=== PATIENT | female | born 1965 | race Caucasian/White ===

== ENCOUNTER 2019-03-22 09:06 | Outpatient (CLI) | payer BC ==
--- NOTE | 2019-03-22 10:46 | MMO ---
Left Breast MAMMO Unilat Diag DDI LT+OLEKSANDR. CLINICAL HISTORY: Patient is 53 years old and is seen for diagnostic exam. The patient has the following family history of breast cancer: maternal aunt, malignant (generic). The patient has no personal history of cancer. The patient has a history of left needle biopsy - benign. VIEWS: The views performed were: left craniocaudal spot compression magnification; left craniocaudal spot compression with tomosynthesis; left mediolateral oblique spot compression with tomosynthesis; left mediolateral spot compression magnification; and left mediolateral with tomosynthesis. FILMS COMPARED: The present examination has been compared to a prior imaging study performed at [facility] on 03/02/2019. This study has been interpreted with the assistance of computer-aided detection. MAMMOGRAM FINDINGS: There are scattered fibroglandular densities. Additional views were performed. The report of the outside mammogram 03-02-[address] [facility] by Dr. Angel, states that there were no prior mammograms. However, the patient tells us that she had be dictated and evaluated once those [facility] mammograms become available for comparison. IMPRESSION: FINDING IN THE LEFT BREAST REQUIRES ADDITIONAL EVALUATION. OLD FILMS ARE REQUIRED FOR COMPARISON. A SUPPLEMENTAL REPORT WILL BE GENERATED WHEN THESE ARE OBTAINED. IF THESE ARE NOT RECEIVED, ADDITIONAL VIEWS AND/OR ULTRASOUND IS RECOMMENDED. THE RESULTS OF THIS EXAM WERE SENT TO THE PATIENT. ACR BI-RADS Category 0 - Incomplete: Need Prior Mammograms for Comparison MAMMOGRAPHY NOTE: 1. A negative mammogram report should not delay a biopsy if a dominant of clinically suspicious mass is present. 2. Approximately 10% to 15% of breast cancers are not detected by mammography. 3. Adenosis and dense breasts may obscure an underlying neoplasm. Reported by: NATALY VILLA MD Electonically Signed: [id number]
== END 2019-03-22 09:07 | disposition home or self-care (01) ==
LOC: BICMAMMO 09:06
PROVIDERS: ATTEND Obstetrics & Gynecology
DX: N63.20 Unspecified lump in the left breast, unspecified quadrant (principal)
CPT/HCPCS: G0279

== ENCOUNTER 2019-04-02 16:29 | Inpatient (IN) | payer BC ==
[2019-04-02 18:03] LABS: #Basophils 0.1 thou/uL (0.0-0.2); #Eosinphils 0.4 thou/uL (0.0-0.7); #Lymphocytes 2.2 thou/uL (1.20-3.40); #Monocytes 0.8 thou/uL (0.11-0.59); #Neutrophils 11.5 thou/uL (1.40-6.50); %Basophils 0.7 % (0.0-1.0); %Eosinophils 2.4 % (0.0-10.0); %Monocytes 5.1 % (0.0-10.0); %Neutrophils 76.9 % (42.0-75.0); Hemoglobin 12.4 g/dL (12.0-16.0); Mean Corpuscular HGB CONC 33.9 g/dL (32.0-36.0); Mean Corpuscular Hemoglobin 30.7 pg (27.0-31.0); Mean Corpuscular Volume 90.5 fL (78.0-98.0); Mean Platelet Volume 6.4 fL (7.4-10.4); Platelet Count 320 thou/uL (130-400); RBC Distribution Width 11.6 % (11.5-14.5); Red Blood Cell (RBC) Count 4.03 mill/uL (4.20-5.40); White Blood Cell (WBC) Count 14.9 thou/uL (4.8-10.8)
[2019-04-02] MEDS ORDERED: Morphine 4 MG/ML VIAL ONE ×2 (18:15→21:22)
[2019-04-02] MEDS ORDERED: Ondansetron PF 4 MG/2 ML Vial ONE (18:15)
[2019-04-02 18:26] LABS: ALT (SGPT) 14 U/L (8-55); AST (SGOT) 10 U/L (5-34); Albumin 4.5 g/dL (3.5-5.0); Alkaline Phosphatase 64 U/L (40-110); Anion Gap 15 mmol/L (10-20); BUN (Urea Nitrogen) 10 mg/dL (9.8-20.1); Bilirubin, Total 0.6 mg/dL (0.2-1.2); Calc. Creatinine Clearance 0 mL/min (70-130); Calcium 9.7 mg/dL (7.8-10.44); Carbon Dioxide 26 mmol/L (22-29); Chloride 101 mmol/L (98-107); Estimated GFR-MDRD 72; Globulin 3.2 g/dL (2.4-3.5); Glucose 104 mg/dL (70-105); Potassium 3.8 mmol/L (3.5-5.1); Protein, Total 7.7 g/dL (6.0-8.3); Sodium 138 mmol/L (136-145)
--- NOTE | 2019-04-02 19:34 | CT ---
CT PELVIS WITH IV CONTRAST: History: Fever at home with possible abscess to left lower extremity. Patient has history of left kne e surgery and history of appendectomy. FINDINGS: There is inflammatory stranding seen in the subcutaneous adipose layer in the most medial aspect left gluteal region which is adjacent to the region of left gluteal cleft. There is an area of soft tissu e density present in this region which is asymmetric to the contralateral right side and measures shannon roximately 3.4 cm x 1.8 cm. This may represent a phlegmon. There is no fluid collection seen to sugge st an abscess at this time. Urinary bladder is partially distended and has a normal appearance. There is evidence of hysterectomy . No free fluid or fluid collection is seen in the pelvis. The osseous structures have a normal appearance. There is sacralization of the left aspect of the L5 vertebral body with S1 with fusion of the lateral masses in this region. IMPRESSION: 1. Inflammatory changes and stranding with probable small phlegmon seen in the most medial aspect lef t gluteal soft tissues which is below the level of the anus and adjacent to the gluteal cleft. There is no fluid collection seen to suggest an abscess at this time. POS: BRENDA
[2019-04-02] MEDS ORDERED: Clindamycin/D5W 900 mg/50 ml Premix Bag ONE (20:07)
[2019-04-02] MEDS ORDERED: Ondansetron ODT 4 MG TAB SL PRN (23:23)
[2019-04-02] MEDS ORDERED: Ondansetron PF 4 MG/2 ML Vial IVP PRN (23:23)
[2019-04-02] MEDS: Sodium Chloride 0.9% 1,000 ML IV SCH (23:54)
[2019-04-03 00:12] VITALS: BMI 30.2
[2019-04-03] MEDS ORDERED: cefTRIAXone\\ROCEPHIN 2 GM in Sodium Chloride 0.9% 100 ML IVPB SCH (01:00)
[2019-04-03] MEDS ORDERED: Ondansetron PF 4 MG/2 ML Vial IVP PRN (04:04)
[2019-04-03] MEDS ORDERED: Ibuprofen 200 MG TAB PO PRN (04:04)
[2019-04-03] MEDS ORDERED: Ondansetron ODT 4 MG TAB PO PRN (04:04)
[2019-04-03] MEDS ORDERED: Loratadine 10 MG TAB PO PRN (04:04)
[2019-04-03] MEDS ORDERED: Acetaminophen 325 MG TAB PO PRN (04:04)
--- NOTE | 2019-04-03 05:08 | HP ---
PRIMARY CARE PHYSICIAN: Dr. Green. CHIEF COMPLAINT: Pain on my buttocks and leg. HISTORY OF PRESENT ILLNESS: Ms. Vicente is a pleasant 53-year-old female, who has no significant past medical history. She says that about 3 days ago she noticed a small bump on her buttocks. She thought it might have been an ant bite, but it got larger and larger, then she started feeling sick and noticing high fever. She thought it could be a kidney stone, but she went to the urgent care to get it checked out and they prescribed an antibiotic for her. She started taking the antibiotics, but did not notice any improvement. She says it was a bluish green pill, thinks it may have been doxycycline. She also noticed that she started hurting "all over" and feeling like she had the flu. For this reason, she came into the ER and was found to have a cellulitis on her buttock region, and a CT scan was negative for abscess formation. But due to her fever and elevated white blood cell count and failed outpatient treatment, she is being admitted. The patient denies any nausea, no vomiting, no diarrhea, and no other complaints. REVIEW OF SYSTEMS: All systems were reviewed and are negative except that mentioned in the history of present illness. PAST MEDICAL HISTORY: Significant for anxiety. PAST SURGICAL HISTORY: She has had a hysterectomy, appendectomy, and knee surgery. ALLERGIES: TO PENICILLIN, WHICH CAUSES SWELLING OF HER THROAT AND TONGUE. SOCIAL HISTORY: She is , has 4 children. 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 She is a nonsmoker. 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 FAMILY HISTORY: Significant for breast cancer, bladder cancer sister also had breast cancer as well as an aunt. MEDICATIONS: Other than the antibiotic and hydrocodone, no other medications. PHYSICAL EXAMINATION: GENERAL: She is alert and oriented. She appears to be in no acute distress. She is well developed and well nourished. VITAL SIGNS: Blood pressure is 96/61, heart rate 81, respiratory rate of 18, temperature is 98.9. LABORATORY DATA: Her white blood cell count was 14.9, hemoglobin 12.4, hematocrit is 36.4, and platelet count is 320. chemistry is completely normal. CT scan did not demonstrate any evidence of abscess. ASSESSMENT: This is a 53-year-old female with failed outpatient treatment of cellulitis. She will be admitted and started on IV antibiotics. We will need to cover for the usual culprits such as staph and strep and given the location, also offer some gram-negative coverage as well. Follow her with serial exams and if she develops fluid collection or signs of abscess, then consult surgery for drainage. Otherwise, hopefully after a few days of IV antibiotics, she can be transitioned over to an oral regimen, and discharged home. Job ID: [id number]
[2019-04-03 05:49] LABS: #Eosinphils 0.4 thou/uL (0.0-0.7); #Lymphocytes 1.8 thou/uL (1.20-3.40); #Monocytes 0.7 thou/uL (0.11-0.59); #Neutrophils 8.4 thou/uL (1.40-6.50); %Basophils 0.4 % (0.0-1.0); %Eosinophils 3.8 % (0.0-10.0); %Lymphocytes 16.1 % (21.0-51.0); %Monocytes 6.2 % (0.0-10.0); %Neutrophils 73.6 % (42.0-75.0); Hemoglobin 10.5 g/dL (12.0-16.0); Mean Corpuscular HGB CONC 33.6 g/dL (32.0-36.0); Mean Corpuscular Hemoglobin 30.5 pg (27.0-31.0); Mean Corpuscular Volume 90.8 fL (78.0-98.0); Mean Platelet Volume 6.7 fL (7.4-10.4); Platelet Count 299 thou/uL (130-400); RBC Distribution Width 11.4 % (11.5-14.5); Red Blood Cell (RBC) Count 3.44 mill/uL (4.20-5.40); White Blood Cell (WBC) Count 11.3 thou/uL (4.8-10.8)
[2019-04-03 06:11] LABS: Anion Gap 9 mmol/L (10-20); BUN (Urea Nitrogen) 9 mg/dL (9.8-20.1); Calc. Creatinine Clearance 100 mL/min (70-130); Calcium 8.6 mg/dL (7.8-10.44); Carbon Dioxide 30 mmol/L (22-29); Chloride 103 mmol/L (98-107); Estimated GFR-MDRD 80; Glucose 107 mg/dL (70-105); Potassium 3.8 mmol/L (3.5-5.1); Sodium 138 mmol/L (136-145)
[2019-04-03] MEDS ORDERED: Clindamycin/D5W 900 MG in Premix Bag 1 BAG IVPB SCH (09:00)
[2019-04-03] MEDS ORDERED: Vancomycin HCl 1 GM in Premix Bag 1 BAG IVPB SCH (09:00)
[2019-04-03] MEDS: Vancomycin HCl 1.25 GM in Sodium Chloride 0.9% 250 ML 250 ML IVPB SCH ×2 (09:55→20:42)
[2019-04-03] MEDS: Saccharomyces boulardii 250 MG CAP PO SCH (09:56)
[2019-04-03] MEDS: Sodium Chloride 0.9% 1,000 ML IV SCH ×2 (10:00→14:49)
[2019-04-03] MEDS: Ibuprofen 200 MG TAB PO SCH ×2 (14:48→20:40)
[2019-04-03] MEDS ORDERED: Ketorolac Tromethamine 30 MG/ML VIAL IVP PRN (15:01)
[2019-04-03] MEDS ORDERED: Morphine 2 MG/ML SYRINGE SLOW IVP PRN (15:01)
[2019-04-03] MEDS ORDERED: Polyethylene Glycol 3350 17 GM Packet PO PRN (15:08)
[2019-04-03] MEDS: HYDROcodone/Acetaminophen 5/325 mg Tablet PO PRN (15:10)
[2019-04-03] MEDS: Famotidine 20 MG TAB PO SCH (20:39)
[2019-04-03] MEDS: Senokot S 8.6-50 MG TAB PO SCH (20:41)
[2019-04-04] MEDS: Sodium Chloride 0.9% 1,000 ML IV SCH ×2 (01:32→16:14)
[2019-04-04] MEDS: HYDROcodone/Acetaminophen 5/325 mg Tablet PO PRN ×2 (05:49→21:22)
[2019-04-04] MEDS: Ibuprofen 200 MG TAB PO SCH ×2 (09:05→16:03)
[2019-04-04] MEDS: Famotidine 20 MG TAB PO SCH ×2 (09:05→21:15)
[2019-04-04] MEDS: Saccharomyces boulardii 250 MG CAP PO SCH (09:05)
[2019-04-04] MEDS: Senokot S 8.6-50 MG TAB PO SCH ×2 (09:06→21:15)
[2019-04-04] MEDS: Vancomycin HCl 1.25 GM in Sodium Chloride 0.9% 250 ML 250 ML IVPB SCH ×3 (10:25→21:25)
[2019-04-04] MEDS ORDERED: Morphine 4 MG/ML VIAL SLOW IVP PRN (10:56)
--- NOTE | 2019-04-04 12:27 | CON ---
DATE OF CONSULTATION: CHIEF COMPLAINT: Perianal pain and fever. HISTORY OF PRESENT ILLNESS: The patient is a 53-year-old female, who has a 4-day history of perirectal pain, fevers at 103, last night had drainage of purulent fluid. PAST MEDICAL HISTORY: Significant for anxiety. PAST SURGICAL HISTORY: She has had a hysterectomy, appendectomy, knee surgery. ALLERGIES: SHE HAS ALLERGIES TO PENICILLIN. SOCIAL HISTORY: She is . 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 FAMILY HISTORY: Breast cancer, bladder cancer. MEDICATIONS: No medications. PHYSICAL EXAMINATION: VITAL SIGNS: Temperature is 98.3, pulse 70, blood pressure 112/72. GENERAL: She is awake, alert, in no apparent distress. She last ate at 11 p.m. HEENT: Unremarkable. LUNGS: Clear. HEART: Regular rate and rhythm. ABDOMEN: Soft, nondistended, nontender. : Perianal exam on the right gluteus about 4 cm from the anal verge somewhat posterolateral. There is a 4 cm indurated mass with some central fluctuance consistent with either gluteal or perirectal abscess. LABORATORY DATA: Her white count is 11.1, hemoglobin and hematocrit 10 and 31, platelet count 299. Electrolytes are fine. ASSESSMENT: Gluteal versus perirectal abscess. PLAN: Exam under anesthesia, I and D. we will plan for doing this tomorrow. I have discussed planned procedure as well as risk of bleeding, infection, possible fistula formation. She understands and gives informed consent. Job ID: [id number]
[2019-04-04] MEDS ORDERED: ALPRAZolam 0.25 MG TAB PO PRN (18:23)
--- NOTE | 2019-04-04 18:27 | PDOC.HOSPP ---
- Subjective Encounter Date: 04/04/19 Encounter Time: 10:00 Subjective: Patient seen and examined for gluteal abscess. No fever. Pain +. No other complaints. No overnight events - Objective Vital Signs & Weight: Vital Signs (12 hours) Temp Pulse Resp BP Pulse Ox 04/04/19 08:00 98.3 F 70 16 112/72 96 Weight Weight 165 lb I&O: 04/03/19 04/04/19 04/05/19 06:59 06:59 06:59 Intake Total 3153 480 Balance 3153 480 Result Diagrams: 04/03/19 05:11 04/03/19 05:11 Hospitalist ROS - Review of Systems Respiratory: denies: cough, dry, shortness of breath, hemoptysis, SOB with excertion, pleuritic pain, sputum, wheezing, other Cardiovascular: denies: chest pain, palpitations, orthopnea, paroxysmal noc. dyspnea, edema, light headedness, other - Medication Medications: Active Medications Generic Name Dose Route Start Last Admin Trade Name Freq PRN Reason Stop Dose Admin Hydrocodone Bitart/Acetaminophen 1 tab 04/03/19 04:04 04/04/19 05:49 [place] 5/325 PO 1 tab Q4H PRN Administration Moderate Pain (4-6) Famotidine 20 mg 04/03/19 21:00 04/04/19 09:05 Pepcid PO 20 mg BID ROB Administration Levofloxacin 500 mg/ Device 100 mls @ 100 mls/hr 04/03/19 05:00 04/04/19 04: 51 IVPB 100 mls 0500 ROB Administration Vancomycin HCl 1.25 gm/ Sodium 250 mls @ 166.667 mls/hr 04/03/19 09:00 10:57 Chloride IVPB 250 mls 0900,2100 ROB Administration Sodium Chloride 1,000 mls @ 75 mls/hr 04/03/19 13:15 04/04/19 16:14 Normal Saline 0.9% IV 1,000 mls .[id number] ROB Administration Ibuprofen 400 mg 04/03/19 04:04 04/03/19 05:57 Motrin PO 400 mg Q4H PRN Administration Fever > 101 Saccharomyces Boulardii 250 mg 04/03/19 09:00 04/04/19 09:05 Florastor PO 250 mg DAILY ROB Administration Senna/Docusate Sodium 1 tab 04/03/19 21:00 04/04/19 09:06 Senokot S PO Not Given BID ROB - Exam General Appearance: NAD Neck: supple, no JVD Heart: RRR, no gallops Respiratory: CTAB, no wheezes, no rales, no ronchi Gastrointestinal: soft, non-tender, normal bowel sounds Extremities: no edema Skin - other findings: erythema/induration left gluteal region per surgery Hosp A/P - Plan DVT proph w/SCDs Sepsis due to gluteal abscess with cellulitis (POA) Anxiety Obesity BMI 30.2 CKD 2 PLAN: Cont IV Vancomycin Cont IV Levaquin Monitor Vancomycin level Consult Gen surg Cont IVF NPO after MN Pain control
[2019-04-05] MEDS: Famotidine 20 MG TAB PO SCH (09:09)
[2019-04-05] MEDS: Senokot S 8.6-50 MG TAB PO SCH (09:09)
[2019-04-05] MEDS: Saccharomyces boulardii 250 MG CAP PO SCH (09:09)
[2019-04-05] MEDS ORDERED: Lidocaine 1% w/Epinephrine 1:100K 20 ML VIAL ONE (10:29)
[2019-04-05] MEDS ORDERED: Bupivacaine PF 0.5% 30 ML VIAL ONE (10:29)
[2019-04-05] MEDS ORDERED: Fentanyl 100 MCG/2 ML VIAL ONE (10:36)
[2019-04-05] MEDS ORDERED: Midazolam HCl 2 mg/2 ml Vial ONE (10:36)
[2019-04-05] MEDS: Vancomycin HCl 1.25 GM in Sodium Chloride 0.9% 250 ML 250 ML IVPB SCH (11:09)
[2019-04-05] MEDS ORDERED: HYDROcodone/Acetaminophen 10/325 mg Tablet PO PRN ×2 (11:21)
[2019-04-05] MEDS ORDERED: Promethazine HCl 25 MG/ML VIAL IM PRN (11:36)
[2019-04-05] MEDS ORDERED: Ondansetron HCl/PF 4 MG/2 ML Vial IVP PRN (11:36)
[2019-04-05] MEDS ORDERED: Promethazine HCl 25 MG/ML VIAL SLOW IVP PRN (11:36)
--- NOTE | 2019-04-05 11:46 | OP ---
DATE OF PROCEDURE: 04/05/2019 PREOPERATIVE DIAGNOSIS: Perirectal abscess. PROCEDURE PERFORMED: Incision and drainage. INDICATIONS: This is a 53-year-old female with a fluctuant mass on the left side of her anus, 4 cm from the anal verge. This had some drainage. FINDINGS: Rectal exam showed no communication internally. It contained multilocular purulent pockets, that did not have foul smell,consistent with Staph aureus, more consistent with gluteal abscess. DESCRIPTION OF PROCEDURE: After informed consent was obtained, the patient was taken to the operating room, given general endotracheal anesthesia, placed in the lithotomy position. The perianal region was prepped and draped in the usual fashion. Local anesthesia infiltrated with 0.5% Marcaine. A bivalved anal retractor was inserted. The rectal wall and anal canal were inspected. There was no evidence of inflammation internally. An elliptical incision was performed, releasing purulent fluid. This was sent for culture. The skin was excised. Loculations were broken up. The area was thoroughly irrigated with saline. Hemostasis achieved with electrocautery, packed the empty dry with wide mesh gauze. The patient tolerated the procedure well, transferred to Recovery in good condition. Job ID: [id number]
[2019-04-05] MEDS: Sodium Chloride 0.9% 1,000 ML IV SCH (12:12)
[2019-04-05 12:15] VITALS: BP 128/86; TEMP 97.5
[2019-04-05] MEDS ORDERED: Lidocaine 1% PF 5 ML VIAL ONE (14:15)
[2019-04-05] MEDS ORDERED: PROPOFOL 200 MG/20 ML VIAL ONE (14:15)
--- NOTE | 2019-04-05 16:05 | DIS ---
DATE OF ADMISSION: 04/02/2019 DATE OF DISCHARGE: 04/05/2019 DISCHARGE DISPOSITION: Home. FOLLOWUP: 1. Follow up with primary care physician, Dr. Vinny Green in 1 week. 2. Follow up with Dr. Arias in 2 weeks. ALLERGIES: THE PATIENT IS ALLERGIC TO PENICILLIN. DISCHARGE MEDICATIONS: 1. Bactrim double strength one tablet b.i.d. for 2 weeks. 2. Foster as needed for pain. 3. Tylenol. 4. Ibuprofen as needed. 5. Florastor 250 mg daily. INPATIENT EXPANDED DUTY DENTAL ASSISTANT: General Surgery, Dr. Arias. The patient was seen on the day of discharge. Denies any new complaints. BRIEF HOSPITAL COURSE: The patient is a 53-year-old female, who presented to the emergency room with gluteal abscess. She was evaluated by General Surgery, Dr. Arias. She underwent incision and drainage earlier today. She was placed on vancomycin and Levaquin. Cultures were consistent with MRSA sensitive to Bactrim. The patient has been cleared by General Surgery for discharge. FINAL DIAGNOSES: 1. Gluteal abscess with sepsis and cellulitis, present on admission. 2. Anxiety. 3. Chronic kidney disease stage 2. 4. Obesity with a BMI of 30.2. Job ID: [id number]
--- NOTE | 2019-04-06 05:17 | PQF ---
SAP It Infrastructure Architect Crystal Reports Winform ViewerSPOXANA MCFARLAND MEGA KACIE FINNEY JR, MD [id number] [facility] [id number] CLINICAL DOCUMENTATION CLARIFICATION FORM: POST DISCHARGE Addendum to original discharge summary date: ____ Late entry note date: __ DATE: 04/06/2019 ATTN:KACIE FINNEY JR, MD Please exercise your independent, professional judgment in responding to the clarification form. Clinical indicators are provided on the bottom of this form for your review Please check appropriate box(s): [x ] Incision and Drainage only (No Debridement): Depth:[ x ] Skin [ x ] Subcutaneous [ ] Fascia [ ] Muscle [ ] Tendon [ ] Bone [ ] Escharectomy [ ] Other procedure diagnosis [ ] Unable to determine For continuity of documentation, please document condition throughout progress notes and discharge summary. Thank You. CLINICAL INDICATORS - SIGNS / SYMPTOMS / LABS The perianal region was prepped and dapped and a bivalved retractor was inserted - Documented in OP note An elliptical incision was performed, releasing purulent fluid - Documented in OP note The skin was excised and loculation were broken up - Documented in OP note The area thoroughly irrigated with saline - Documented in OP note RISK FACTORS Perirectal Abscess - Documented in OP note Sepsis - Documented in H&P Abscess contain multiple purulent pockets did not have foul smell - Documented in OP note TREATMENTS: Packed the empty dry with wide mesh gauze - Documented in OP note Purulent fluid sent for culture (This form is maintained as a part of the permanent medical record) 2014 [employer]. All Rights Reserved [email or web address] [not provided] MTDD
--- NOTE | 2019-04-13 05:21 | PQF ---
SAP Hostage Negotiator Crystal Reports Winform ViewerOXANA GOMEZ JOHN A JR MD [id number] [facility] [id number] CLINICAL DOCUMENTATION CLARIFICATION FORM: POST DISCHARGE Addendum to original discharge summary date: ____ Late entry note date: __ DATE: 04/13/2019 ATTN: KACIE FINNEY JR, MD Please exercise your independent, professional judgment in responding to the clarification form. Clinical indicators are provided on the bottom of this form for your review Procedue Incision and Drainage Site [ ] Site(s) [ ] Gluteal site [ ] Perirectal site [ ] [place] appropriate site [ ] Approach(s) [ ] Open [ ] Percutaneous [ ] Unable to determine [ ] Other procedure: CLINICAL INDICATORS - SIGNS/ SYMPTOMS / LABS Perirectal Abscess - Documented in OP report I&D depth Subcutaneous - Documented in Physician Query response Gluteal abscess - Documented in DS on 04/05 by Crow Campos MD Gluteal versus Perirectal abscess - Documented in Consult note on 04/04 by KACIE FINNEY JR, MD An elliptical incision was performed and loculation were broken up - Documented in OP report RISK FACTORS Sepsis due to Gluteal abscess with cellulitis- Documented in H&P Obesity CKD 2 TREATMENT I&D had done IV vancomycin and Levaquin SAP Hostage Negotiator Crystal Reports Winform Viewer(This form is maintained as a part of the permanent medical record) 2014 [employer]. All Rights Reserved [email or web address] [not provided] MTDD
== END 2019-04-05 14:16 | disposition home or self-care (01) | DRG 872 ==
LOC: ERS 16:29 → T4-B 21:35
PROVIDERS: ADMIT Internal Medicine; ATTEND Internal Medicine
PROC: 0D9P3ZZ Drainage of Rectum, Percutaneous Approach (ICD-10-PCS; principal; 2019-04-05)
DX: A41.9 Sepsis, unspecified organism (principal); K61.1 Rectal abscess; F41.9 Anxiety disorder, unspecified; E66.9 Obesity, unspecified; N18.2 Chronic kidney disease, stage 2 (mild); Z90.710 Acquired absence of both cervix and uterus; Z90.49 Acquired absence of other specified parts of digestive tract; Z88.0 Allergy status to penicillin; Z68.30 Body mass index [BMI] 30.0-30.9, adult
CPT/HCPCS: 36415; 72193; 80048; 80053; 80202; 83605; 85025; 87040; 87070; 87077; 87186; 87205; 96361; 96365; 96367; 96375; 96376; J1956; J2001; J2250; J2270; J2405; J2704; J3010; J3370; J3490; J7050; S0020

== ENCOUNTER → 2019-05-03 | Day surgery (SDC) | payer BC ==
--- NOTE | 2019-05-03 13:19 | MMO ---
Stereotactic guided biopsy left breast microcalcifications Surgical specimen mammography left breast biopsy Left diagnostic mammogram post biopsy HISTORY: Abnormal mammogram. Microcalcifications. FINDINGS: After explaining the procedure and answering all questions, the subtle microcalcification c luster at the inferior aspect of the left breast was visualized. Sterile technique, buffered local anesthesia, stereotactic guidance, and a lateral approach were used to carefully advance a 10-gauge v acuum-assisted needle to the area of microcalcifications. Position was confirmed with stereotactic imaging. A total of 8 specimens were obtained and sent to pathology for evaluation. Localization clip was placed in the biopsy bed. Surgical specimen mammography showed microcalcificati ons in the tissue. Patient tolerated the procedure well after needle was removed. Hemostasis obtained using direct pressure. Patient was dismissed in good condition. Post procedure mammogram shows the localization clip in the biopsy bed. Calcifications have been gaye minoo. IMPRESSION: Technically successful stereotactic guided biopsy left breast microcalcifications. Pathol ogy is pending.
== END ==
LOC: MAMMO 06:35
PROVIDERS: ATTEND Specialist
PROC: 0H9U3ZX Drainage of Left Breast, Percutaneous Approach, Diagnostic (ICD-10-PCS; principal; 2019-05-03)
DX: N60.82 Other benign mammary dysplasias of left breast (principal); Z88.0 Allergy status to penicillin
CPT/HCPCS: 19081; 76098; 88305; 89060

== ENCOUNTER 2020-01-20 15:47 | Inpatient (IN) | payer BC, OTHER ==
[2020-01-20 18:11] VITALS: BMI 26.6
[2020-01-20] MEDS ORDERED: Guaifenesin DM 100-10/5 ML UDCUP PO PRN (20:58)
[2020-01-20] MEDS ORDERED: Calcium Carbonate 500 MG ChewTAB PO PRN (20:58)
[2020-01-20] MEDS ORDERED: Sodium Chloride 0.9% 1,000 ML IV SCH (21:00)
[2020-01-20] MEDS ORDERED: FLU VACC QS2020-21(6MOS UP)/PF 60 MCG/0.5 ML SYRINGE IM ONE (21:00)
--- NOTE | 2020-01-20 21:06 | PDOC.HHP ---
Hospitalist HPI - History of Present Illness fever cough myalgia History of Present Illness: Case of an 54y/o female with no chronic pmhx who comes to hospital due to fever chills and myalgias. patient states she was on her usual state of health until 1 week ago when she started with fever chills cough dyspnea headaches and nausea. she states symptoms kept worsening for which she seek medical attention. she states mylgias are 9/10 all over her body. denies diarrhea, vomiting or dysuria. Hospitalist ROS - Review of Systems All other systems reviewed; all pertinent +/- noted in HPI/Subj Hospitalist History - Past Surgical History Past Surgical History: reports: Appendectomy, Hysterectomy - Family History Family History: reports: no pertinent history - Social History Smoking Status: Never smoker Alcohol: reports: None Drugs: reports: none - Exam General Appearance: NAD, awake alert, ill appearing Eye: PERRL, anicteric sclera ENT: normocephalic atraumatic, no oropharyngeal lesions Neck: supple, symmetric, no JVD, no thyromegaly Heart: RRR, no murmur, no gallops Respiratory: CTAB, no wheezes, no rales Gastrointestinal: soft, non-tender, non-distended, normal bowel sounds Extremities: no cyanosis, no clubbing, no edema Skin: normal turgor, no lesions, no rashes Neurological: cranial nerve grossly intact, normal sensation to touch, no focal deficits, no new deficit Musculoskeletal: normal tone, normal strength, no muscle wasting Psychiatric: normal affect, normal behavior, A&O x 3 Hospitalist Results - Radiology Interpretation Chest x-ray Status: image reviewed by me, report reviewed by me Additional Comment: viral pneumonia Hospitalist H&P A/P - Problem (1) Pneumonia due to COVID-19 virus Code(s): U07.1 - COVID-19; J12.89 - OTHER VIRAL PNEUMONIA Status: Acute - Plan Plan: 54y/o w no chroinc pmhx who presents w worsning covid 19 symptoms covid 19 - cxr consistent with viral pneumonia - covid 19 test sent - flu test negative - levaquin for prophylaxis - f/u inflammation markers - id consulted - decadron 6mg ivd - ivfs - pain management - prn treatment for nausea
[2020-01-20] MEDS: HYDROcodone/Acetaminophen 5/325 mg Tablet PO PRN (21:16)
[2020-01-20] MEDS ORDERED: Morphine 2 MG/ML SYRINGE SLOW IVP PRN (21:37)
[2020-01-20] MEDS ORDERED: Ondansetron PF 4 MG/2 ML Vial IVP PRN (21:38)
[2020-01-20] MEDS ORDERED: Morphine 2 MG/ML VIAL SLOW IVP PRN (22:07)
[2020-01-21] MEDS: HYDROcodone/Acetaminophen 5/325 mg Tablet PO PRN ×2 (02:37→20:31)
[2020-01-21 06:44] LABS: ALT (SGPT) 23 U/L (8-55); AST (SGOT) 22 U/L (5-34); Albumin 3.6 g/dL (3.5-5.0); Alkaline Phosphatase 47 U/L (40-110); Anion Gap 12 mmol/L (10-20); BUN (Urea Nitrogen) 12 mg/dL (9.8-20.1); Bilirubin, Total 0.5 mg/dL (0.2-1.2); Calc. Creatinine Clearance 95 mL/min (70-130); Calcium 7.6 mg/dL (7.8-10.44); Carbon Dioxide 26 mmol/L (22-29); Chloride 102 mmol/L (98-107); Estimated GFR-MDRD 76; Globulin 2.4 g/dL (2.4-3.5); Glucose 110 mg/dL (70-105); Sodium 136 mmol/L (136-145)
[2020-01-21] MEDS ORDERED: Loratadine 10 MG TAB PO PRN (08:06)
[2020-01-21] MEDS ORDERED: Bisacodyl 10 MG SUPP PR PRN (08:06)
[2020-01-21] MEDS ORDERED: Cepastat Lozenges 1 LOZ PO PRN (08:06)
[2020-01-21] MEDS ORDERED: Sodium Chloride 0.65% Nasal 44 ML BOT EA NARE PRN (08:06)
[2020-01-21] MEDS ORDERED: hydrALAZINE 20 MG/ML VIAL SLOW IVP PRN (08:06)
[2020-01-21] MEDS ORDERED: Senokot S 8.6-50 MG TAB PO PRN (08:06)
[2020-01-21] MEDS ORDERED: Metoclopramide HCl 10 MG/2 ML VIAL IVP PRN (08:06)
[2020-01-21] MEDS ORDERED: Loperamide HCl 2 MG CAP PO PRN (08:06)
[2020-01-21 08:22] LABS: Band 5 % (5-11); Hemoglobin 11.1 g/dL (12.0-16.0); Lymphocytes 30 % (21-51); MDiff Complete? YES; Mean Corpuscular HGB CONC 34.2 g/dL (32.0-36.0); Mean Corpuscular Hemoglobin 30.3 pg (27.0-31.0); Mean Corpuscular Volume 88.8 fL (78.0-98.0); Mean Platelet Volume 7.1 fL (7.4-10.4); Monocytes 2 % (0-10); Neutrophil 62 % (42-75); Platelet Count 205 thou/uL (130-400); Platelet Morphology Comment Appears Adequate; RBC Distribution Width 11.8 % (11.5-14.5); RBC Morphology Normal; Red Blood Cell (RBC) Count 3.65 mill/uL (4.20-5.40); White Blood Cell (WBC) Count 3.9 thou/uL (4.8-10.8)
[2020-01-21] MEDS ORDERED: Enoxaparin Sodium 40 MG/0.4 ML SYRINGE SC SCH (09:00)
[2020-01-21] MEDS ORDERED: Ascorbic Acid 500 mg Chewable Tablet PO SCH (09:00)
[2020-01-21] MEDS: Dexamethasone 6 MG in Sodium Chloride 0.9% 50 ML IVPB SCH (09:09)
[2020-01-21] MEDS: Acetaminophen 325 MG TAB PO PRN (09:09)
--- NOTE | 2020-01-21 11:18 | PDOC.HOSPP ---
- Subjective Encounter Date: 01/21/20 Encounter Time: 08:30 Subjective: Patient seen and examined bedside today, patient is subjectively feeling very weak, she was on 2 L nasal cannula oxygen, she has headache and body ache and back pain. She does not have any pleurisy. - Objective Vital Signs & Weight: Vital Signs (12 hours) Temp Pulse Resp BP Pulse Ox 01/21/20 04:00 98.7 F 77 18 117/78 97 01/21/20 00:31 98.7 F 75 18 107/72 95 Weight Weight 165 lb 5.547 oz I&O: 01/20/20 01/21/20 01/22/20 06:59 06:59 06:59 Intake Total 1600 Balance 1600 Result Diagrams: 01/21/20 06:04 01/21/20 06:04 Radiology Reviewed by me: Yes EKG Reviewed by me: Yes Hospitalist ROS - Review of Systems Constitutional: reports: weakness. denies: fever, chills, sweats, malaise, other Eyes: denies: pain, vision change, conjunctivae inflammation, eyelid inflammation, redness, other ENT: denies: ear pain, ear discharge, nose pain, nose discharge, nose congestion, mouth pain, mouth swelling, throat pain, throat swelling, other Respiratory: denies: cough, dry, shortness of breath, hemoptysis, SOB with excertion, pleuritic pain, sputum, wheezing, other Cardiovascular: denies: chest pain, palpitations, orthopnea, paroxysmal noc. dyspnea, edema, light headedness, other Gastrointestinal: denies: nausea, vomiting, abdominal pain, diarrhea, constipation, melena, hematochezia, other Genitourinary: denies: dysuria, frequency, incontinence, hematuria, retention, other Musculoskeletal: reports: back pain. denies: neck pain, shoulder pain, arm pain, hand pain, leg pain, foot pain, other Skin: denies: rash, lesions, dylan, bruising, other - Medication Medications: Active Medications Generic Name Dose Route Start Last Admin Trade Name Freq PRN Reason Stop Dose Admin Acetaminophen 650 mg 01/20/20 20:58 01/21/20 09:09 Acetaminophen 325 Mg Tab PO 650 mg Q4H PRN Administration Headache/Fever/Mild Pain (1-3) Ascorbic Acid 1,000 mg 01/21/20 09:00 01/21/20 09:09 Ascorbic Acid 500 Mg Chewable Tablet PO 1,000 mg DAILY ROB Administration Enoxaparin Sodium 40 mg 01/21/20 09:00 01/21/20 09:09 Enoxaparin Sodium 40 Mg/0.4 Ml Syringe SC 40 mg 0900 ROB Administration Levofloxacin 750 mg/ Device 150 mls @ 100 mls/hr 01/20/20 21:00 01/20/20 21:16 IVPB 150 mls 2100 ROB Administration Dexamethasone 6 mg/ Sodium 50.6 mls @ 100 mls/hr 01/21/20 09:00 01/21/20 09:09 Chloride IVPB 50.6 mls DAILY ROB Administration - Exam General Appearance: NAD, awake alert Eye: PERRL, anicteric sclera ENT: normocephalic atraumatic, no oropharyngeal lesions, moist mucosa Neck: supple, symmetric, no JVD, no thyromegaly Heart: RRR, no murmur, no gallops, no rubs Respiratory: no wheezes, no rales, no ronchi Gastrointestinal: soft, non-tender, non-distended, normal bowel sounds Extremities: no cyanosis, no clubbing Skin: normal turgor, no lesions Neurological: no focal deficits Musculoskeletal: normal tone, normal strength Psychiatric: normal affect, normal behavior, A&O x 3 Hosp A/P (1) Pneumonia due to COVID-19 virus Code(s): U07.1 - COVID-19; J12.89 - OTHER VIRAL PNEUMONIA Status: Acute (2) Acute respiratory failure with hypoxia Code(s): J96.01 - ACUTE RESPIRATORY FAILURE WITH HYPOXIA Status: Acute - Plan old records reviewed/req, continue antibiotics, respiratory therapy We are waiting for COVID-19 test result Clinically patient may have COVID-19 infection and she is on IV steroid with the Decadron Continue IV levofloxacin We will wean off her oxygen Symptomatic treatment We have added vitamin supplementation with vitamin C and zinc sulfate Ambulate in her room as tolerated
[2020-01-21] MEDS ORDERED: REMDESIVIR (EUA) 200 MG in Sodium Chloride 0.9% 250 ML 210 ML IV SCH (18:00)
[2020-01-21] MEDS: Zinc Sulfate 220 MG CAP PO SCH (18:13)
--- NOTE | 2020-01-21 19:33 | CON ---
DATE OF CONSULTATION: 01/21/2020 REASON FOR CONSULTATION: COVID infection. HISTORY OF PRESENT ILLNESS: A 54-year-old, history of obesity and a 1-week history of fever, myalgia, cough. She initially felt it was allergies, but then developed a fever and came for evaluation. She tested positive for COVID. Currently, she is feeling fatigued. Denies headaches. No sore throat, odynophagia, or dysphagia. Some nasal obstipation, coughing intermittently. No sputum. No chest pain. Abdomen was bloated earlier, but not any more. Voiding without difficulty. Some diarrhea. No joint symptoms. No skin disorder. No neurological symptoms. PAST MEDICAL HISTORY: Not remarkable. SURGICAL HISTORY: Appendectomy, hysterectomy. SOCIAL HISTORY: Never smoker. 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 Does not drink. Lives in [place]. CURRENT MEDICATIONS: 1. Decadron. 2. Levaquin. PHYSICAL EXAMINATION: VITAL SIGNS: T-max 99.7, BP 112/82, heart rate 84, respiratory rate 18, and O2 saturation 99. SKIN: Normal. No lymphadenopathy. HEENT: Ocular movements conjugate. A little bit of puffiness around the orbits. Oral cavity normal. LUNGS: With few crackles here and there. HEART: S1 and S2, regular rate without murmurs. No S3 or S4. ABDOMEN: Soft. Not distended or tender. No ascites. No bladder distention. MUSCULOSKELETAL: No joint inflammatory activity. Moves extremities equally. NEUROLOGIC: Cognitive function appears to be intact. LABORATORY DATA: White cell count 3.9, hemoglobin 11, platelets 205, normal diff. D-dimer 0.54. Chemistry with a procalcitonin of 0.03. Did not do a ferritin or CRP yet. IMAGING: Chest x-ray with subtle parenchymal opacity in each base. There is a pathology from breast biopsy from April of this year, which did not show any malignancy. ASSESSMENT: 6-day history of respiratory symptoms with a positive COVID test. She meets criteria for remdesivir and we will go ahead and start it, and continue Decadron and increase Lovenox to b.i.d. Followup inflammatory markers daily. Endpoint for discharge planning will be improvement of oxygenation, maybe hopefully room air oxygenation and then no significant drop in O2 saturations after brief walk or exercise. Job ID: [id number] [facility]
[2020-01-21] MEDS: Enoxaparin Sodium 40 MG/0.4 ML SYRINGE SC SCH (20:30)
[2020-01-21] MEDS: Zolpidem Tartrate 5 MG TAB PO PRN (20:31)
[2020-01-21] MEDS: Diabetic Tussin 200 MG/10 ML UDCUP PO PRN (20:31)
[2020-01-22] MEDS: HYDROcodone/Acetaminophen 5/325 mg Tablet PO PRN ×2 (04:05→19:33)
[2020-01-22 06:51] LABS: ALT (SGPT) 24 U/L (8-55); AST (SGOT) 19 U/L (5-34); Albumin 3.8 g/dL (3.5-5.0); Alkaline Phosphatase 48 U/L (40-110); Anion Gap 14 mmol/L (10-20); BUN (Urea Nitrogen) 15 mg/dL (9.8-20.1); Bilirubin, Direct 0.2 mg/dL (0.1-0.3); Bilirubin, Total 0.4 mg/dL (0.2-1.2); CRP (Inflammatory) 5.36 mg/dL (= or < 0.5); Calc. Creatinine Clearance 101 mL/min (70-130); Calcium 8.7 mg/dL (7.8-10.44); Carbon Dioxide 27 mmol/L (22-29); Chloride 101 mmol/L (98-107); Estimated GFR-MDRD 81; Glucose 110 mg/dL (70-105); Potassium 3.7 mmol/L (3.5-5.1); Protein, Total 6.7 g/dL (6.0-8.3); Sodium 138 mmol/L (136-145)
[2020-01-22] MEDS: Ascorbic Acid 500 mg Chewable Tablet PO SCH (09:38)
[2020-01-22] MEDS: Zinc Sulfate 220 MG CAP PO SCH (09:38)
[2020-01-22] MEDS: Enoxaparin Sodium 40 MG/0.4 ML SYRINGE SC SCH ×2 (09:38→20:42)
[2020-01-22] MEDS: Dexamethasone 6 MG in Sodium Chloride 0.9% 50 ML IVPB SCH (09:38)
[2020-01-22] MEDS: Acetaminophen 325 MG TAB PO PRN (10:56)
[2020-01-22] MEDS: REMDESIVIR (EUA) 100 MG in Sodium Chloride 0.9% 250 ML 230 ML IV SCH (18:31)
--- NOTE | 2020-01-22 19:16 | PDOC.HOSPP ---
- Subjective Encounter Date: 01/22/20 Encounter Time: 12:00 Subjective: Patient seen and examined for respiratory failure due to COVID 19 pneumonia. Symptomatically feeling slightly better than yesterday. Some cough with minimal production. Intermittent fever. - Objective Vital Signs & Weight: Vital Signs (12 hours) Temp Pulse Resp BP Pulse Ox 01/22/20 15:00 99.3 F 75 16 115/77 97 01/22/20 11:00 98.5 F 74 17 118/67 97 01/22/20 08:00 97 Weight Weight 165 lb 5.547 oz I&O: 01/21/20 01/22/20 01/23/20 06:59 06:59 06:59 Intake Total 1600 2510 Balance 1600 2510 Result Diagrams: 01/21/20 06:04 01/22/20 06:01 Additional Labs: 01/20/20 21:26: D-Dimer 0.54 H 01/20/20 21:27: Lactate Dehydrogenase 248 H 01/20/20 21:27: C-React Prot High Sens 53.16 H 01/21/20 06:04: Calcium 7.6 L 01/21/20 06:04: WBC 3.9 L, RBC 3.65 L, Hgb 11.1 L, Hct 32.4 L, MPV 7.1 L 01/22/20 06:01: C-Reactive Protein 5.36 H 01/22/20 06:01: D-Dimer 0.57 H Microbiology - Entire Visit 01/20/20 21:27 Venous blood - Right Hand Blood Culture - Preliminary NO GROWTH AT 48 HOURS 01/20/20 21:27 Venous blood - Left Hand Blood Culture - Preliminary NO GROWTH AT 48 HOURS Radiology Reviewed by me: Yes (Chest x-raybilateral infiltrates) Hospitalist ROS - Review of Systems Cardiovascular: denies: chest pain, palpitations, orthopnea, paroxysmal noc. dyspnea, edema, light headedness, other Gastrointestinal: denies: nausea, vomiting, abdominal pain, diarrhea, constipation, melena, hematochezia, other - Medication Medications: Active Medications Generic Name Dose Route Start Last Admin Trade Name Freq PRN Reason Stop Dose Admin Acetaminophen 650 mg 01/20/20 20:58 01/22/20 10:56 Acetaminophen 325 Mg Tab PO 650 mg Q4H PRN Administration Headache/Fever/Mild Pain (1-3) Hydrocodone Bitart/Acetaminophen 1 tab 01/20/20 20:58 01/22/20 04:05 Hydrocodone/Acetaminophen 5/325 Mg Tablet PO 1 tab Q4H PRN Administration Moderate Pain (4-6) Ascorbic Acid 1,000 mg 01/22/20 09:00 01/22/20 09:38 Ascorbic Acid 500 Mg Chewable Tablet PO 1,000 mg DAILY ROB Administration Enoxaparin Sodium 40 mg 01/21/20 21:00 01/22/20 09:38 Enoxaparin Sodium 40 Mg/0.4 Ml Syringe SC 40 mg BID ROB Administration Guaifenesin 200 mg 01/21/20 08:06 01/21/20 20:31 Diabetic Tussin 200 Mg/10 Ml Udcup PO 200 mg Q4H PRN Administration Cough Dexamethasone 6 mg/ Sodium 50.6 mls @ 100 mls/hr 01/21/20 09:00 01/22/20 09:38 Chloride IVPB 50.6 mls DAILY ROB Administration Remdesivir 100 mg/ Sodium 250 mls @ 250 mls/hr 01/22/20 18:00 01/22/20 18:31 Chloride IV 01/25/20 18:59 250 mls 1800 ROB Administration Zinc Sulfate 220 mg 01/21/20 09:00 01/22/20 09:38 Zinc Sulfate 220 Mg Cap PO 220 mg DAILY ROB Administration Zolpidem Tartrate 5 mg 01/21/20 08:06 01/21/20 20:31 Zolpidem Tartrate 5 Mg Tab PO 5 mg HSPRN PRN Administration Insomnia - Exam General Appearance: ill appearing Neck: supple, no JVD Heart: RRR, no gallops, no rubs Respiratory: rales, rhonchi, tachypneic Gastrointestinal: soft, non-tender, normal bowel sounds Extremities: no cyanosis Hosp A/P - Plan DVT proph w/lovenox, DVT proph w/SCDs 54-year-old female presented on 01/19 with one-week history of fever, cough and myalgias. Her workup was consistent with acute respiratory failure due to COVID 19 pneumonia. Patient was evaluated by infectious disease and started on Remdesivir with dexamethasone. #Acute hypoxic respiratory failuresecondary to COVID 19 pneumoniacontinue Remdesivir (day 2). Continue dexamethasone. Case discussed with infectious disease. Will discontinue Levaquin. Continue O2 supplementation. Monitor inflammatory markers. Continue isolation. Continue inhalers. Monitor closely for decompensation. #Anemia probably due to nutritional deficiencywill monitor #Leukopenia most likely due to COVID 19 infection #CKD stage II DVT prophylaxiscontinue Lovenox 40 mg bid
[2020-01-22] MEDS ORDERED: Albuterol 200 PUFF (6.7GM INHALER) INH PRN (20:31)
[2020-01-22] MEDS: Benzonatate 100 MG CAP PO PRN (20:41)
[2020-01-22] MEDS: guaiFENesin ER 600 MG TAB PO SCH (20:41)
[2020-01-22] MEDS: Melatonin 3 MG TAB PO PRN (20:41)
[2020-01-23] MEDS: HYDROcodone/Acetaminophen 5/325 mg Tablet PO PRN ×2 (03:46→18:58)
[2020-01-23] MEDS: Diabetic Tussin 200 MG/10 ML UDCUP PO PRN (03:47)
[2020-01-23 06:55] LABS: #Lymphocytes 1.2 thou/uL (1.20-3.40); #Monocytes 0.4 thou/uL (0.11-0.59); #Neutrophils 2.6 thou/uL (1.40-6.50); %Basophils 0.4 % (0.0-1.0); %Eosinophils 0.3 % (0.0-10.0); %Lymphocytes 28.4 % (21.0-51.0); %Monocytes 9.8 % (0.0-10.0); Hemoglobin 11.8 g/dL (12.0-16.0); Mean Corpuscular HGB CONC 34.9 g/dL (32.0-36.0); Mean Corpuscular Volume 88.7 fL (78.0-98.0); Mean Platelet Volume 7.1 fL (7.4-10.4); Platelet Count 256 thou/uL (130-400); RBC Distribution Width 11.6 % (11.5-14.5); Red Blood Cell (RBC) Count 3.82 mill/uL (4.20-5.40); White Blood Cell (WBC) Count 4.3 thou/uL (4.8-10.8)
[2020-01-23 07:11] LABS: Phosphorus 2.9 mg/dL (2.3-4.7)
[2020-01-23 07:14] LABS: ALT (SGPT) 19 U/L (8-55); AST (SGOT) 16 U/L (5-34); Albumin 3.8 g/dL (3.5-5.0); Alkaline Phosphatase 49 U/L (40-110); Anion Gap 11 mmol/L (10-20); BUN (Urea Nitrogen) 17 mg/dL (9.8-20.1); Bilirubin, Direct 0.2 mg/dL (0.1-0.3); Bilirubin, Total 0.3 mg/dL (0.2-1.2); CRP (Inflammatory) 3.54 mg/dL (= or < 0.5); Calc. Creatinine Clearance 99 mL/min (70-130); Calcium 8.5 mg/dL (7.8-10.44); Carbon Dioxide 28 mmol/L (22-29); Chloride 102 mmol/L (98-107); Estimated GFR-MDRD 80; Glucose 154 mg/dL (70-105); Magnesium 1.9 mg/dL (1.6-2.6); Potassium 3.5 mmol/L (3.5-5.1); Protein, Total 6.6 g/dL (6.0-8.3); Sodium 137 mmol/L (136-145)
[2020-01-23] MEDS: Ascorbic Acid 500 mg Chewable Tablet PO SCH (08:59)
[2020-01-23] MEDS: Zinc Sulfate 220 MG CAP PO SCH (08:59)
[2020-01-23] MEDS: guaiFENesin ER 600 MG TAB PO SCH ×2 (08:59→20:47)
[2020-01-23] MEDS: Dexamethasone 6 MG in Sodium Chloride 0.9% 50 ML IVPB SCH (08:59)
[2020-01-23] MEDS: Enoxaparin Sodium 40 MG/0.4 ML SYRINGE SC SCH ×2 (08:59→20:47)
[2020-01-23] MEDS: REMDESIVIR (EUA) 100 MG in Sodium Chloride 0.9% 250 ML 230 ML IV SCH (18:35)
--- NOTE | 2020-01-23 18:47 | PDOC.HOSPP ---
- Subjective Encounter Date: 01/23/20 Encounter Time: 12:30 Subjective: Patient seen and examined for COVID-19 pneumonia with respiratory failure. Symptomatically feeling better. Mild cough. Short of breath on minimal exertion. On 2 L O2 nasal cannula. - Objective Vital Signs & Weight: Vital Signs (12 hours) Temp Pulse Resp BP Pulse Ox 01/23/20 08:00 98.6 F 62 18 119/74 97 Weight Weight 165 lb 5.547 oz I&O: 01/22/20 01/23/20 01/24/20 06:59 06:59 06:59 Intake Total 2510 1300 400 Balance 2510 1300 400 Result Diagrams: 01/23/20 06:27 01/23/20 06:27 Additional Labs: Abnormal Lab Results - Last 48 hrs 01/20/20 21:27: C-React Prot High Sens 53.16 H 01/22/20 06:01: C-Reactive Protein 5.36 H 01/22/20 06:01: D-Dimer 0.57 H 01/23/20 06:27: C-Reactive Protein 3.54 H 01/23/20 06:27: WBC 4.3 L, RBC 3.82 L, Hgb 11.8 L, Hct 33.9 L, MPV 7.1 L Microbiology - Entire Visit 01/20/20 21:27 Venous blood - Right Hand Blood Culture - Preliminary NO GROWTH AT 48 HOURS 01/20/20 21:27 Venous blood - Left Hand Blood Culture - Preliminary NO GROWTH AT 48 HOURS Radiology Reviewed by me: Yes (Chest x-ray10/11bilateral infiltrate) Hospitalist ROS - Review of Systems Constitutional: reports: weakness, malaise Gastrointestinal: denies: nausea, vomiting, abdominal pain, diarrhea, constipation, melena, hematochezia, other Genitourinary: denies: dysuria, frequency, incontinence, hematuria, retention, other - Medication Medications: Active Medications Generic Name Dose Route Start Last Admin Trade Name Freq PRN Reason Stop Dose Admin Acetaminophen 650 mg 01/20/20 20:58 01/22/20 10:56 Acetaminophen 325 Mg Tab PO 650 mg Q4H PRN Administration Headache/Fever/Mild Pain (1-3) Hydrocodone Bitart/Acetaminophen 1 tab 01/20/20 20:58 01/23/20 03:46 Hydrocodone/Acetaminophen 5/325 Mg Tablet PO 1 tab Q4H PRN Administration Moderate Pain (4-6) Albuterol Sulfate 2 puff 01/22/20 20:31 01/23/20 05:36 Albuterol 200 Puff (6.7gm Inhaler) INH 2 puff Q4H PRN Administration SOB &/or Wheezing Ascorbic Acid 1,000 mg 01/22/20 09:00 01/23/20 08:59 Ascorbic Acid 500 Mg Chewable Tablet PO 1,000 mg DAILY ROB Administration Benzonatate 100 mg 01/21/20 08:06 01/22/20 20:41 Benzonatate 100 Mg Cap PO 100 mg Q6H PRN Administration Cough Enoxaparin Sodium 40 mg 01/21/20 21:00 01/23/20 08:59 Enoxaparin Sodium 40 Mg/0.4 Ml Syringe SC 40 mg BID ROB Administration Guaifenesin 200 mg 01/21/20 08:06 01/23/20 03:47 Diabetic Tussin 200 Mg/10 Ml Udcup PO 200 mg Q4H PRN Administration Cough Guaifenesin 600 mg 01/22/20 21:00 01/23/20 08:59 Guaifenesin Er 600 Mg Tab PO 600 mg Q12HR ROB Administration Dexamethasone 6 mg/ Sodium 50.6 mls @ 100 mls/hr 01/21/20 09:00 01/23/20 08:59 Chloride IVPB 50.6 mls DAILY ROB Administration Remdesivir 100 mg/ Sodium 250 mls @ 250 mls/hr 01/22/20 18:00 01/23/20 18:35 Chloride IV 01/25/20 18:59 250 mls 1800 ROB Administration Melatonin 3 mg 01/22/20 19:56 01/22/20 20:41 Melatonin 3 Mg Tab PO 3 mg HSPRN PRN Administration Insomnia Zinc Sulfate 220 mg 01/21/20 09:00 01/23/20 08:59 Zinc Sulfate 220 Mg Cap PO 220 mg DAILY ROB Administration Zolpidem Tartrate 5 mg 01/21/20 08:06 01/21/20 20:31 Zolpidem Tartrate 5 Mg Tab PO 5 mg HSPRN PRN Administration Insomnia - Exam General Appearance: ill appearing Neck: supple, no JVD Heart: RRR, no gallops Respiratory: rales, rhonchi, tachypneic (Mild) Gastrointestinal: soft, non-tender, normal bowel sounds Extremities: no cyanosis, no clubbing Neurological: no new deficit Psychiatric: normal affect, A&O x 3 Hosp A/P - Plan DVT proph w/lovenox 54-year-old female presented on 01/19 with one-week history of fever, cough and myalgias. Her workup was consistent with acute respiratory failure due to COVID 19 pneumonia. Patient was placed on O2 supplementation with inhalers and was started on Remdesivir with dexamethasone. #Acute hypoxic respiratory failuresecondary to COVID 19 pneumoniaimproving continue Remdesivir (day 3) with dexamethasone. Continue O2 supplementation. Inflammatory markers improving. A.m. labs. Continue isolation. Continue inhalersscheduled and as needed. Will need home oxygen at discharge. #Chronic anemia probably due to nutritional deficiency will monitor #Leukopenia most likely due to COVID 19 infection We will monitor #CKD stage II We will monitor DVT prophylaxis continue Lovenox 40 mg bid
[2020-01-23] MEDS: Melatonin 3 MG TAB PO PRN (20:47)
[2020-01-23] MEDS: Benzonatate 100 MG CAP PO PRN (20:48)
[2020-01-24] MEDS: Albuterol 200 PUFF (6.7GM INHALER) INH SCH ×6 (02:50→22:22)
[2020-01-24] MEDS: Acetaminophen 325 MG TAB PO PRN (02:58)
[2020-01-24 07:53] LABS: #Eosinphils 0.1 thou/uL (0.0-0.7); #Lymphocytes 1.8 thou/uL (1.20-3.40); #Monocytes 0.6 thou/uL (0.11-0.59); %Basophils 0.2 % (0.0-1.0); %Eosinophils 1.1 % (0.0-10.0); %Lymphocytes 40.7 % (21.0-51.0); %Monocytes 13.4 % (0.0-10.0); %Neutrophils 44.5 % (42.0-75.0); Hemoglobin 11.8 g/dL (12.0-16.0); Mean Corpuscular HGB CONC 33.7 g/dL (32.0-36.0); Mean Corpuscular Volume 89.1 fL (78.0-98.0); Mean Platelet Volume 6.8 fL (7.4-10.4); Platelet Count 303 thou/uL (130-400); RBC Distribution Width 11.7 % (11.5-14.5); Red Blood Cell (RBC) Count 3.94 mill/uL (4.20-5.40); White Blood Cell (WBC) Count 4.4 thou/uL (4.8-10.8)
[2020-01-24] MEDS ORDERED: Potassium Chloride 20 MEQ TAB PO SCH (08:15)
[2020-01-24 08:17] LABS: ALT (SGPT) 20 U/L (8-55); AST (SGOT) 17 U/L (5-34); Albumin 3.7 g/dL (3.5-5.0); Alkaline Phosphatase 48 U/L (40-110); Anion Gap 11 mmol/L (10-20); BUN (Urea Nitrogen) 20 mg/dL (9.8-20.1); Bilirubin, Direct 0.1 mg/dL (0.1-0.3); Bilirubin, Total 0.3 mg/dL (0.2-1.2); CRP (Inflammatory) 1.64 mg/dL (= or < 0.5); Calc. Creatinine Clearance 99 mL/min (70-130); Calcium 8.5 mg/dL (7.8-10.44); Carbon Dioxide 29 mmol/L (22-29); Chloride 102 mmol/L (98-107); Estimated GFR-MDRD 80; Glucose 109 mg/dL (70-105); Protein, Total 6.5 g/dL (6.0-8.3); Sodium 138 mmol/L (136-145)
[2020-01-24] MEDS: Enoxaparin Sodium 40 MG/0.4 ML SYRINGE SC SCH ×2 (08:58→20:33)
[2020-01-24] MEDS: Benzonatate 100 MG CAP PO PRN ×2 (08:58→20:34)
[2020-01-24] MEDS: guaiFENesin ER 600 MG TAB PO SCH ×2 (08:58→20:34)
[2020-01-24] MEDS: Ascorbic Acid 500 mg Chewable Tablet PO SCH (08:58)
[2020-01-24] MEDS: Zinc Sulfate 220 MG CAP PO SCH (09:04)
[2020-01-24] MEDS: Magnesium Chloride 64 MG TAB PO SCH ×2 (09:05→20:34)
[2020-01-24] MEDS: Dexamethasone 6 MG in Sodium Chloride 0.9% 50 ML IVPB SCH (09:05)
[2020-01-24] MEDS: HYDROcodone/Acetaminophen 5/325 mg Tablet PO PRN (16:03)
--- NOTE | 2020-01-24 16:57 | PDOC.HOSPP ---
- Subjective Encounter Date: 01/24/20 Encounter Time: 11:30 Subjective: Patient seen and examined for respiratory failure due to COVID-19 pneumonia. Feels generally weak. Gets short of breath on [id number] exertion. Denies any fever however had some chills earlier. Feels fatigued with malaise. - Objective Vital Signs & Weight: Vital Signs (12 hours) Temp Pulse Resp BP Pulse Ox 01/24/20 12:00 98.1 F 66 18 129/68 97 01/24/20 08:00 98.0 F 73 18 129/78 96 Weight Weight 165 lb 5.547 oz I&O: 01/23/20 01/24/20 01/25/20 06:59 06:59 06:59 Intake Total 1300 2040 Balance 1300 2040 Result Diagrams: 01/24/20 07:22 01/24/20 07:22 Additional Labs: Abnormal Lab Results - Last 48 hrs 01/23/20 06:27: C-Reactive Protein 3.54 H 01/23/20 06:27: WBC 4.3 L, RBC 3.82 L, Hgb 11.8 L, Hct 33.9 L, MPV 7.1 L 01/24/20 07:22: C-Reactive Protein 1.64 H 01/24/20 07:22: WBC 4.4 L, RBC 3.94 L, Hgb 11.8 L, Hct 35.1 L, MPV 6.8 L, Monocytes % 13.4 H, Monocytes # 0.6 H Microbiology - Entire Visit 01/20/20 21:27 Venous blood - Right Hand Blood Culture - Preliminary NO GROWTH AT 48 HOURS 01/20/20 21:27 Venous blood - Left Hand Blood Culture - Preliminary NO GROWTH AT 48 HOURS Hospitalist ROS - Review of Systems Cardiovascular: denies: chest pain, palpitations, orthopnea, paroxysmal noc. dyspnea, edema, light headedness, other Gastrointestinal: denies: nausea, vomiting, abdominal pain, diarrhea, constipation, melena, hematochezia, other - Medication Medications: Active Medications Generic Name Dose Route Start Last Admin Trade Name Freq PRN Reason Stop Dose Admin Acetaminophen 650 mg 01/20/20 20:58 01/24/20 02:58 Acetaminophen 325 Mg Tab PO 650 mg Q4H PRN Administration Headache/Fever/Mild Pain (1-3) Hydrocodone Bitart/Acetaminophen 1 tab 01/20/20 20:58 01/24/20 16:03 Hydrocodone/Acetaminophen 5/325 Mg Tablet PO 1 tab Q4H PRN Administration Moderate Pain (4-6) Albuterol Sulfate 2 puff 01/22/20 20:31 01/23/20 05:36 Albuterol 200 Puff (6.7gm Inhaler) INH 2 puff Q4H PRN Administration SOB &/or Wheezing Albuterol Sulfate 2 puff 01/24/20 02:30 01/24/20 16:03 Albuterol 200 Puff (6.7gm Inhaler) INH 2 puff [id number] Administration Ascorbic Acid 1,000 mg 01/22/20 09:00 01/24/20 08:58 Ascorbic Acid 500 Mg Chewable Tablet PO 1,000 mg DAILY ROB Administration Benzonatate 100 mg 01/21/20 08:06 01/24/20 08:58 Benzonatate 100 Mg Cap PO 100 mg Q6H PRN Administration Cough Enoxaparin Sodium 40 mg 01/21/20 21:00 01/24/20 08:58 Enoxaparin Sodium 40 Mg/0.4 Ml Syringe SC 40 mg BID ROB Administration Guaifenesin 200 mg 01/21/20 08:06 01/23/20 03:47 Diabetic Tussin 200 Mg/10 Ml Udcup PO 200 mg Q4H PRN Administration Cough Guaifenesin 600 mg 01/22/20 21:00 01/24/20 08:58 Guaifenesin Er 600 Mg Tab PO 600 mg Q12HR ROB Administration Dexamethasone 6 mg/ Sodium 50.6 mls @ 100 mls/hr 01/21/20 09:00 01/24/20 09:05 Chloride IVPB 50.6 mls DAILY ROB Administration Remdesivir 100 mg/ Sodium 250 mls @ 250 mls/hr 01/22/20 18:00 01/23/20 18:35 Chloride IV 01/25/20 18:59 250 mls 1800 ROB Administration Magnesium Chloride 64 mg 01/24/20 09:00 01/24/20 09:05 Magnesium Chloride 64 Mg Tab PO 64 mg BID ROB Administration Melatonin 3 mg 01/22/20 19:56 01/23/20 20:47 Melatonin 3 Mg Tab PO 3 mg HSPRN PRN Administration Insomnia Zinc Sulfate 220 mg 10/12/20 09:00 01/24/20 09:04 Zinc Sulfate 220 Mg Cap PO 220 mg DAILY ROB Administration Zolpidem Tartrate 5 mg 01/21/20 08:06 01/21/20 20:31 Zolpidem Tartrate 5 Mg Tab PO 5 mg HSPRN PRN Administration Insomnia - Exam General Appearance: ill appearing Heart: RRR, no gallops Respiratory: no wheezes, no ronchi Gastrointestinal: non-tender, non-distended, no guarding, no rigidity Extremities: no cyanosis Neurological: no new deficit Psychiatric: A&O x 3 Hosp A/P - Plan DVT proph w/lovenox, DVT proph w/SCDs 54-year-old female presented on 01/19 with one-week history of fever, cough and myalgias. Her workup was consistent with acute respiratory failure due to COVID 19 pneumonia. Patient was placed on O2 supplementation with inhalers and was started on Remdesivir with dexamethasone. #Acute hypoxic respiratory failuresecondary to COVID 19 pneumonia continue Remdesivir (day 4) with dexamethasone. Continue O2 supplementation. Inflammatory markers improving. A.m. labs. Continue isolation. Continue inhalers. Consult caser up for home oxygen set up. Will discuss with infectious disease #Chronic anemia probably due to nutritional deficiency will monitor #Leukopenia most likely due to COVID 19 infection We will monitor #CKD stage II We will monitor DVT/GI prophylaxis continue Lovenox 40 mg bid with Pepcid
[2020-01-24] MEDS: REMDESIVIR (EUA) 100 MG in Sodium Chloride 0.9% 250 ML 230 ML IV SCH (18:13)
[2020-01-24] MEDS: Famotidine 20 MG TAB PO SCH (20:33)
[2020-01-24] MEDS: Zolpidem Tartrate 5 MG TAB PO PRN (20:34)
[2020-01-25] MEDS: Albuterol 200 PUFF (6.7GM INHALER) INH SCH ×6 (02:28→21:33)
[2020-01-25 05:50] LABS: #Lymphocytes 1.8 thou/uL (1.20-3.40); #Monocytes 0.6 thou/uL (0.11-0.59); #Neutrophils 3.3 thou/uL (1.40-6.50); %Basophils 0.3 % (0.0-1.0); %Eosinophils 0.6 % (0.0-10.0); %Lymphocytes 31.8 % (21.0-51.0); %Monocytes 10.5 % (0.0-10.0); %Neutrophils 56.8 % (42.0-75.0); Hemoglobin 12.5 g/dL (12.0-16.0); Mean Corpuscular HGB CONC 33.6 g/dL (32.0-36.0); Mean Corpuscular Hemoglobin 29.4 pg (27.0-31.0); Mean Corpuscular Volume 87.6 fL (78.0-98.0); Mean Platelet Volume 6.9 fL (7.4-10.4); Platelet Count 374 thou/uL (130-400); RBC Distribution Width 11.7 % (11.5-14.5); Red Blood Cell (RBC) Count 4.26 mill/uL (4.20-5.40); White Blood Cell (WBC) Count 5.7 thou/uL (4.8-10.8)
[2020-01-25 06:31] LABS: ALT (SGPT) 34 U/L (8-55); AST (SGOT) 24 U/L (5-34); Alkaline Phosphatase 49 U/L (40-110); Anion Gap 14 mmol/L (10-20); BUN (Urea Nitrogen) 20 mg/dL (9.8-20.1); Bilirubin, Direct 0.2 mg/dL (0.1-0.3); Bilirubin, Total 0.4 mg/dL (0.2-1.2); CRP (Inflammatory) 0.95 mg/dL (= or < 0.5); Calc. Creatinine Clearance 94 mL/min (70-130); Calcium 9.1 mg/dL (7.8-10.44); Carbon Dioxide 24 mmol/L (22-29); Chloride 103 mmol/L (98-107); Estimated GFR-MDRD 75; Glucose 104 mg/dL (70-105); Potassium 4.3 mmol/L (3.5-5.1); Sodium 137 mmol/L (136-145)
[2020-01-25] MEDS: Famotidine 20 MG TAB PO SCH ×2 (08:03→20:48)
[2020-01-25] MEDS: Ascorbic Acid 500 mg Chewable Tablet PO SCH (08:03)
[2020-01-25] MEDS: guaiFENesin ER 600 MG TAB PO SCH ×2 (08:03→20:48)
[2020-01-25] MEDS: Potassium Chloride 20 MEQ TAB PO SCH (08:03)
[2020-01-25] MEDS: Zinc Sulfate 220 MG CAP PO SCH (08:04)
[2020-01-25] MEDS: Magnesium Chloride 64 MG TAB PO SCH ×2 (08:04→20:48)
[2020-01-25] MEDS: Enoxaparin Sodium 40 MG/0.4 ML SYRINGE SC SCH ×2 (08:04→20:48)
[2020-01-25] MEDS: Dexamethasone 6 MG in Sodium Chloride 0.9% 50 ML IVPB SCH (08:04)
[2020-01-25] MEDS: REMDESIVIR (EUA) 100 MG in Sodium Chloride 0.9% 250 ML 230 ML IV SCH (18:01)
--- NOTE | 2020-01-25 19:39 | PDOC.HOSPP ---
- Subjective Encounter Date: 01/25/20 Encounter Time: 11:30 Subjective: Patient seen and examined for respiratory failure due to COVID-19 pneumonia. Continues to have cough with minimal production. Feels generally weak and short of breath on minimal exertion. - Objective Vital Signs & Weight: Vital Signs (12 hours) Temp Pulse Resp BP Pulse Ox 01/25/20 12:00 95 01/25/20 08:00 98.5 F 70 18 115/74 95 Weight Weight 165 lb 5.547 oz I&O: 01/24/20 01/25/20 01/26/20 06:59 06:59 06:59 Intake Total 2039 2459 1600 Balance 2039 2459 1600 Result Diagrams: 01/25/20 05:23 01/25/20 05:23 Additional Labs: 01/25/20 05:23 Abnormal Lab Results - Last 48 hrs 01/24/20 07:22: C-Reactive Protein 1.64 H 01/24/20 07:22: WBC 4.4 L, RBC 3.94 L, Hgb 11.8 L, Hct 35.1 L, MPV 6.8 L, Monocytes % 13.4 H, Monocytes # 0.6 H 01/25/20 05:23: C-Reactive Protein 0.95 H 01/25/20 05:23: D-Dimer 0.47 H 01/25/20 05:23: MPV 6.9 L, Monocytes % 10.5 H, Monocytes # 0.6 H Microbiology - Entire Visit 01/20/20 21:27 Venous blood - Right Hand Blood Culture - Preliminary NO GROWTH AT 48 HOURS 01/20/20 21:27 Venous blood - Left Hand Blood Culture - Preliminary NO GROWTH AT 48 HOURS Hospitalist ROS - Review of Systems Cardiovascular: denies: chest pain, palpitations, orthopnea, paroxysmal noc. dyspnea, edema, light headedness, other Gastrointestinal: denies: nausea, vomiting, abdominal pain, diarrhea, constipation, melena, hematochezia, other - Medication Medications: Active Medications Generic Name Dose Route Start Last Admin Trade Name Freq PRN Reason Stop Dose Admin Acetaminophen 650 mg 01/20/20 20:58 01/24/20 02:58 Acetaminophen 325 Mg Tab PO 650 mg Q4H PRN Administration Headache/Fever/Mild Pain (1-3) Hydrocodone Bitart/Acetaminophen 1 tab 01/20/20 20:58 01/24/20 16:03 Hydrocodone/Acetaminophen 5/325 Mg Tablet PO 1 tab Q4H PRN Administration Moderate Pain (4-6) Albuterol Sulfate 2 puff 01/22/20 20:31 01/23/20 05:36 Albuterol 200 Puff (6.7gm Inhaler) INH 2 puff Q4H PRN Administration SOB &/or Wheezing Albuterol Sulfate 2 puff 01/24/20 02:30 01/25/20 17:28 Albuterol 200 Puff (6.7gm Inhaler) INH 2 puff [id number] Administration Ascorbic Acid 1,000 mg 01/22/20 09:00 01/25/20 08:03 Ascorbic Acid 500 Mg Chewable Tablet PO 1,000 mg DAILY ROB Administration Benzonatate 100 mg 01/21/20 08:06 01/24/20 20:34 Benzonatate 100 Mg Cap PO 100 mg Q6H PRN Administration Cough Enoxaparin Sodium 40 mg 01/21/20 21:00 01/25/20 08:04 Enoxaparin Sodium 40 Mg/0.4 Ml Syringe SC 40 mg BID ROB Administration Famotidine 20 mg 01/24/20 21:00 01/25/20 08:03 Famotidine 20 Mg Tab PO 20 mg BID ROB Administration Guaifenesin 200 mg 01/21/20 08:06 01/23/20 03:47 Diabetic Tussin 200 Mg/10 Ml Udcup PO 200 mg Q4H PRN Administration Cough Guaifenesin 600 mg 01/22/20 21:00 01/25/20 08:03 Guaifenesin Er 600 Mg Tab PO 600 mg Q12HR ROB Administration Dexamethasone 6 mg/ Sodium 50.6 mls @ 100 mls/hr 01/21/20 09:00 01/25/20 08:04 Chloride IVPB 50.6 mls DAILY ROB Administration Magnesium Chloride 64 mg 01/24/20 09:00 01/25/20 08:04 Magnesium Chloride 64 Mg Tab PO 64 mg BID ROB Administration Melatonin 3 mg 01/22/20 19:56 01/23/20 20:47 Melatonin 3 Mg Tab PO 3 mg HSPRN PRN Administration Insomnia Potassium Chloride 20 meq 01/25/20 08:00 01/25/20 08:03 Potassium Chloride 20 Meq Tab PO 20 meq QAM-WM ROB Administration Zinc Sulfate 220 mg 01/21/20 09:00 01/25/20 08:04 Zinc Sulfate 220 Mg Cap PO 220 mg DAILY ROB Administration Zolpidem Tartrate 5 mg 01/21/20 08:06 01/24/20 20:34 Zolpidem Tartrate 5 Mg Tab PO 5 mg HSPRN PRN Administration Insomnia - Exam General Appearance: ill appearing Heart: RRR, no gallops Respiratory: no wheezes, rales, rhonchi Gastrointestinal: soft, non-tender, normal bowel sounds Extremities: no cyanosis Neurological: no new deficit Hosp A/P - Plan DVT proph w/lovenox, DVT proph w/SCDs 54-year-old female presented on 01/19 with one-week history of fever, cough and myalgias. Her workup was consistent with acute respiratory failure due to COVID 19 pneumonia. Patient was placed on O2 supplementation with inhalers and was started on Remdesivir with dexamethasone. #Acute hypoxic respiratory failuresecondary to COVID 19 pneumoniaslowly improving continue Remdesivir (day 5) with dexamethasone. Continue O2 supplementation. Inflammatory markers improving. Continue isolation. Continue inhalers. Home O2 arranged. #Chronic anemia probably due to nutritional deficiency will monitor #Leukopenia most likely due to COVID 19 infection We will monitor #CKD stage II We will monitor DVT/GI prophylaxis continue Lovenox 40 mg bid with Pepcid DC planningprobably discharge in a.m. if stable
[2020-01-25] MEDS: Diabetic Tussin 200 MG/10 ML UDCUP PO PRN (20:49)
[2020-01-25] MEDS: Zolpidem Tartrate 5 MG TAB PO PRN (20:56)
[2020-01-26] MEDS: Albuterol 200 PUFF (6.7GM INHALER) INH SCH ×3 (02:30→09:27)
[2020-01-26 05:57] VITALS: BP 120/71; TEMP 98.7
[2020-01-26 06:31] LABS: ALT (SGPT) 37 U/L (8-55); AST (SGOT) 30 U/L (5-34); Albumin 3.6 g/dL (3.5-5.0); Alkaline Phosphatase 48 U/L (40-110); Anion Gap 16 mmol/L (10-20); BUN (Urea Nitrogen) 22 mg/dL (9.8-20.1); Bilirubin, Direct 0.2 mg/dL (0.1-0.3); Bilirubin, Total 0.3 mg/dL (0.2-1.2); Calc. Creatinine Clearance 93 mL/min (70-130); Calcium 8.6 mg/dL (7.8-10.44); Carbon Dioxide 21 mmol/L (22-29); Chloride 102 mmol/L (98-107); Estimated GFR-MDRD 74; Glucose 106 mg/dL (70-105); Potassium 4.3 mmol/L (3.5-5.1); Protein, Total 6.8 g/dL (6.0-8.3); Sodium 135 mmol/L (136-145)
[2020-01-26] MEDS: Magnesium Chloride 64 MG TAB PO SCH (09:25)
[2020-01-26] MEDS: Famotidine 20 MG TAB PO SCH (09:26)
[2020-01-26] MEDS: Zinc Sulfate 220 MG CAP PO SCH (09:26)
[2020-01-26] MEDS: Ascorbic Acid 500 mg Chewable Tablet PO SCH (09:26)
[2020-01-26] MEDS: guaiFENesin ER 600 MG TAB PO SCH (09:26)
[2020-01-26] MEDS: Dexamethasone 6 MG in Sodium Chloride 0.9% 50 ML IVPB SCH (09:27)
[2020-01-26] MEDS: Enoxaparin Sodium 40 MG/0.4 ML SYRINGE SC SCH (09:27)
[2020-01-26] MEDS: Potassium Chloride 20 MEQ TAB PO SCH (09:27)
--- NOTE | 2020-01-26 17:13 | DIS ---
DATE OF ADMISSION: 01/20/2020 DATE OF DISCHARGE: 01/26/2020 DISCHARGE DISPOSITION: Home. FOLLOWUP: 1. Follow up with primary care physician in 1 week. 2. Follow up with Infectious Disease, Dr. Bolden after 1 week. DISCHARGE MEDICATIONS: 1. Dexamethasone 6 mg daily for next 4 days. 2. Eliquis 2.5 mg b.i.d. The patient understands the risk associated with anticoagulation, not limited to life-threatening complication. 3. Pepcid 20 mg b.i.d. 4. Albuterol inhaler as needed. 5. Tylenol as needed. 6. Vitamin C 1000 mg p.o. daily. 7. Zinc 220 mg daily. The patient was evaluated on the day of discharge. Shortness of breath is improving. She is currently on 2 L nasal cannula. Home oxygen has been arranged. BRIEF HOSPITAL COURSE: The patient is a 54-year-old female who presented to the emergency room on January 20, 2020 with generalized weakness, fever, cough, and myalgias. Please refer to the history and physical for further details. The patient was admitted to the hospital with diagnosis of acute hypoxic respiratory failure secondary to COVID-19 pneumonia. She was evaluated by Infectious Disease. She was started on O2 supplementation along with bronchodilators. She was placed on isolation. She was started on dexamethasone 6 mg daily along with remdesivir. She completed remdesivir yesterday evening. Home oxygen has been arranged. Symptomatically, she is feeling better. Inflammatory markers are gradually improving. The patient has been cleared by Infectious Disease for discharge. FINAL DIAGNOSES: 1. Acute hypoxic respiratory failure secondary to COVID-19 pneumonia. 2. Chronic anemia, suspected due to nutritional deficiency. 3. Leukopenia, probably due to COVID-19 infection. 4. Chronic kidney disease stage 2. 5. Deep venous thrombosis prophylaxis. The patient is at high risk of venous thromboembolism. She has been started on Eliquis 2.5 mg b.i.d. for next 2 weeks. 6. Penicillin allergy. 7. Hyponatremia. 8. Elevated inflammatory markers. 9. The patient understands the above plan of care. SIGNIFICANT LABS: COVID-19 positive on 01/18. WBC 3.8 on admission. At discharge was 5.7. D-dimer maximum was 0.57. Maximum ferritin was 268. CRP on admission was 5.36, at discharge was 0.95. Job ID: [id number]
== END 2020-01-26 13:24 | disposition home or self-care (01) | DRG 177 ==
LOC: T4-A 15:47 → OBSVTOIN 15:47 → INTOOBSV 15:47
PROVIDERS: ADMIT Student in an Organized Health Care Education/Training Program; ATTEND Student in an Organized Health Care Education/Training Program
PROC: 8E0ZXY6 Isolation (ICD-10-PCS; principal; 2020-01-20)
PROC: XW033E5 Introduction of Remdesivir Anti-infective into Peripheral Vein, Percutaneous Approach, New Technology Group 5 (ICD-10-PCS; 2020-01-21)
PROC: XW033E5 Introduction of Remdesivir Anti-infective into Peripheral Vein, Percutaneous Approach, New Technology Group 5 (ICD-10-PCS; 2020-01-22)
PROC: XW033E5 Introduction of Remdesivir Anti-infective into Peripheral Vein, Percutaneous Approach, New Technology Group 5 (ICD-10-PCS; 2020-01-23)
PROC: XW033E5 Introduction of Remdesivir Anti-infective into Peripheral Vein, Percutaneous Approach, New Technology Group 5 (ICD-10-PCS; 2020-01-24)
PROC: XW033E5 Introduction of Remdesivir Anti-infective into Peripheral Vein, Percutaneous Approach, New Technology Group 5 (ICD-10-PCS; 2020-01-25)
DX: U07.1 COVID-19 (principal); J12.89 Other viral pneumonia; J96.01 Acute respiratory failure with hypoxia; E87.1 Hypo-osmolality and hyponatremia; N18.2 Chronic kidney disease, stage 2 (mild); D53.9 Nutritional anemia, unspecified; D72.819 Decreased white blood cell count, unspecified; Z90.49 Acquired absence of other specified parts of digestive tract; Z90.710 Acquired absence of both cervix and uterus; Z88.0 Allergy status to penicillin
CPT/HCPCS: 36415; 80048; 80053; 80076; 82728; 83605; 83615; 83735; 84100; 84145; 85007; 85025; 85027; 85379; 86140; 86141; 87040; 96365; 96372; 96375; G0378; J1100; J1650; J1956; J7050